=== PATIENT | male | born 1995 | race Caucasian/White ===

== ENCOUNTER 2018-03-22 13:18 | Emergency (ER) | payer OTHER ==
[~2018-03-22] VITALS: Ht 162.6 cm; Wt 52.3 kg
[2018-03-22 13:21] VITALS: BP 111/64
--- NOTE | 2018-03-22 13:28 | NUR ---
pt ambulated to ed bed 10 by Boaz SUN, report to Ally SUN Addendum: 03/22/18 at 1751 by [email or web address] BY RAZ SUN, AMY CROOK RN
--- NOTE | 2018-03-22 13:41 | NUR ---
22/M PRESENT TO ER C/O ABDOMINAL PAIN x TODAY @ 0500. PT DENIES N/V/D OR CONSTIPATION. PT STATES PAIN WAS 8/10 SHARP AND HAS SINCE SUBSIDED. HX: NONE MEDS: NONE
[2018-03-22] MEDS ORDERED: NACL 0.9% 1,000 ML IV ONE (14:18)
[2018-03-22 14:46] LABS: BASOPHILS % (AUTO) 0.5 % (0.0-2.0); EOSINOPHILS % (AUTO) 0.2 % (0.0-4.0); HEMATOCRIT 49.4 % (36-52); HEMOGLOBIN 16.3 g/dL (12.0-18.0); LYMPHOCYTES % (AUTO) 22.7 % (20.5-51.1); MEAN CORPUSCULAR HEMOGLOBIN 28 pg (27-31); MEAN CORPUSCULAR HGB CONC 33 g/dL (33-37); MEAN CORPUSCULAR VOLUME 85.3 fL (80-94); MONOCYTES # (AUTO) 0.5 K/uL (0.8-1.0); MONOCYTES % (AUTO) 5.5 % (1.7-9.3); NEUTROPHILS # (AUTO) 6.4 K/uL (1.8-7.7); NEUTROPHILS % (AUTO) 71.1 % (42.2-75.2); PLATELET COUNT (AUTO) 204 K/uL (140-450); RED CELL DISTRIBUTION WIDTH 14.6 % (11.6-13.7); WHITE BLOOD COUNT (AUTO) 8.9 K/uL (4.8-10.8)
[2018-03-22 14:53] LABS: APPEARANCE,URINE CLEAR (CLEAR); BILIRUBIN,URINE 1+ (NEGATIVE); BLOOD, URINE TRACE-I (NEGATIVE); COLOR,URINE YELLOW (YELLOW); LEUKOCYTE ESTERASE ,URINE NEGATIVE (NEGATIVE); NITRITE, URINE NEGATIVE (NEGATIVE); UGLUCOSE NEGATIVE (NEGATIVE)
[2018-03-22 15:04] LABS: ANION GAP 13.8 (8-16); CARBON DIOXIDE 26.6 mmol/L (21-32); CREATININE 0.8 mg/dL (0.7-1.3); POTASSIUM 3.4 mmol/L (3.5-5.1)
[2018-03-22 15:10] LABS: ALBUMIN 5.2 g/dL (3.4-5.0); TOTAL BILIRUBIN 1.2 mg/dL (0.0-1.0)
[2018-03-22 15:19] LABS: RBC,URINE 0-5 (RARE) /HPF (0-5); WBC,URINE NONE SEEN /HPF (0-5)
[2018-03-22 16:14] VITALS: BP 111/64
--- NOTE | 2018-03-22 16:14 | NUR ---
Patient discharged with v/s stable. Written and verbal after care instructions given and explained. Patient alert, oriented and verbalized understanding of instructions. Ambulatory with steady gait. All questions addressed prior to discharge. ID band removed. Patient advised to follow up with PMD. Rx of COLACE, MOTRIN, AND ZOFRAN given. Patient educated on indication of medication including possible reaction and side effects. Opportunity to ask questions provided and answered.
== END 2018-03-22 16:14 | disposition home or self-care (01) ==
LOC: MED 13:18
DX: R10.32 Left lower quadrant pain (principal); R11.10 Vomiting, unspecified
CPT/HCPCS: 36415; 74176; 80053; 81001; 83690; 85025; 96361; 99285; J7030

== ENCOUNTER 2021-12-20 22:43 | Emergency (ER) | payer OTHER ==
[~2021-12-20] VITALS: Ht 162.6 cm; Wt 59.0 kg
--- NOTE | 2021-12-20 22:56 | NUR ---
Dr. Wilson examining patient.
[2021-12-20 22:57] VITALS: BP 120/75
[2021-12-20] MEDS ORDERED: IBUPROFEN 600 MG TAB PO ONE (23:00)
--- NOTE | 2021-12-20 23:01 | NUR ---
PT W/C ASSIST TO LOBBY
--- NOTE | 2021-12-20 23:02 | NUR ---
PT TAKEN TO CHAIR B
--- NOTE | 2021-12-20 23:23 | NUR ---
Dr. Wilson examining patient.
--- NOTE | 2021-12-20 23:24 | NUR ---
PT MOVED TO ER 11
[2021-12-20] MEDS ORDERED: PROPOFOL 200 MG/20 ML VIAL IV ONE (23:30)
--- NOTE | 2021-12-20 23:50 | NUR ---
Dr. Wilson at bedside for procedure
--- NOTE | 2021-12-20 23:52 | NUR ---
AT 2340, MODERATE SEDATION PERFORMED BY DR MATTHEWS, RT AT BEDSIDE, PLACED SPLINT BY EMT, CONTINUING OBSERVATION BY RN ON PT CONDITION. REDUCED AT 2352.
--- NOTE | 2021-12-20 23:55 | NUR ---
X-Ray at bedside.
--- NOTE | 2021-12-21 00:25 | NUR ---
ER MD AT BEDSIDE DISCUSSING PT RESULTS
[2021-12-21] MEDS ORDERED: NAPR-54 PO (00:49)
[2021-12-21 00:59] VITALS: BP 120/75
--- NOTE | 2021-12-21 01:01 | NUR ---
Patient discharged with v/s stable. Written and verbal after care instructions given and explained. Patient alert, oriented and verbalized understanding of instructions. Ambulatory with use of crutches. All questions addressed prior to discharge. ID band removed. Patient advised to follow up with PMD. Rx of Naprosyn given. Patient educated on indication of medication including possible reaction and side effects. Opportunity to ask questions provided and answered. VSS, A/OX4, UNLABORED BREATHING, AMBULATORY, AND CALM DEMEANOR.
== END 2021-12-21 00:55 | disposition home or self-care (01) ==
LOC: MED 22:43
DX: S93.04XA Dislocation of right ankle joint, initial encounter (principal); Z79.899 Other long term (current) drug therapy; V89.2XXA Person injured in unspecified motor-vehicle accident, traffic, initial encounter; Y93.89 Activity, other specified; Y92.89 Other specified places as the place of occurrence of the external cause; Y99.8 Other external cause status
CPT/HCPCS: 27840; 73610; 99152; 99285; J2704; Q0092